=== PATIENT | female | born 1990 | race American Indian/Alaskan Native ===

== ENCOUNTER 2017-01-31 16:37 | Emergency (ER) | payer BC ==
[2017-01-31 18:42] LABS: Basophils % (Auto) 0.4 % (0.0-1.8); Eosinophils % (Auto) 2.6 % (0.0-4.3); Hematocrit 38.9 % (30.3-42.9); Hemoglobin 12.4 gm/dl (10.1-14.3); Mean Corpuscular HGB Conc 32 % (30-34); Mean Corpuscular Hemoglobin 28 pg (28-32); Mean Corpuscular Volume 87 fl (79-97); Platelet Count 231 K/mm3 (140-440); Red Blood Count 4.47 M/mm3 (3.65-5.03); Red Cell Distribution Width 14.7 % (13.2-15.2)
[2017-01-31 19:05] LABS: Alanine Aminotransferase 9 units/L (7-56); Albumin/Globulin Ratio 1.3 %; Alkaline Phosphatase 48 units/L (35-129); Anion Gap 15 mmol/L; BUN/Creatinine Ratio 16.25; Blood Urea Nitrogen 13 mg/dL (7-17); Calcium 8.6 mg/dL (8.4-10.2); Carbon Dioxide 25 mmol/L (22-30); Chloride 102.3 mmol/L (98-107); Glucose 162 mg/dL (65-100); Lipase 21 units/L (13-60); Sodium 138 mmol/L (137-145); Total Protein 7.1 g/dL (6.3-8.2)
[2017-01-31 22:45] VITALS: BP 120/65
--- NOTE | 2017-01-31 23:56 | Emergency Department Report ---
ED Abdominal Pain HPI - General Chief Complaint: Abdominal Pain Stated Complaint: ABD PAIN Time Seen by Provider: 01/31/17 23:46 Source: patient Mode of arrival: Ambulatory Limitations: No Limitations - History of Present Illness Initial Comments: 26-year-old female coming in with abdominal pain cramping in nature's started yesterday associated with nausea vomiting and watery diarrhea no blood or mucus. Denied any fever. Patient is on depo shot. No urinary symptoms. MD Complaint: abdominal pain -: days(s) (2) Location: diffuse Severity scale (0 -10): 4 Quality: cramping Associated Symptoms: nausea, vomiting, diarrhea. denies: dysuria - Related Data Previous Rx's Medication Instructions Recorded Last Taken Type Doxylamine/Pyridoxine HCl 1 each PO BID #30 tablet. 07/14/15 Unknown Rx [Joan Garcia 10-10 mg Tablet] Ciprofloxacin HCl [Ciprofloxacin 500 mg PO Q12H #14 tab 02/01/17 Unknown Rx TAB] Ondansetron [Zofran Odt] 4 mg PO Q8HR PRN #14 tab.rapdis 02/01/17 Unknown Rx Allergies Allergy/AdvReac Type Severity Reaction Status Date / Time No Known Allergies Allergy Verified 07/13/15 23:25 ED Review of Systems ROS: Stated complaint: ABD PAIN Other details as noted in HPI Constitutional: denies: chills, fever Respiratory: denies: cough, shortness of breath Cardiovascular: denies: chest pain, palpitations Gastrointestinal: abdominal pain, nausea, vomiting, diarrhea Neurological: denies: headache, weakness ED Past Medical Hx - Past Medical History Hx Hypertension: No Hx Congestive Heart Failure: No Hx Diabetes: Yes Hx Headaches / Migraines: Yes Hx Asthma: No Hx COPD: No - Social History Smoking Status: Never Smoker Substance Use Type: None - Medications Home Medications: Home Medications Medication Instructions Recorded Confirmed Last Taken Type Doxylamine/Pyridoxine HCl 1 each PO BID #30 tablet. 07/14/15 Unknown Rx [Joan Garcia 10-10 mg Tablet] Ciprofloxacin HCl [Ciprofloxacin 500 mg PO Q12H #14 tab 02/01/17 Unknown Rx TAB] Ondansetron [Zofran Odt] 4 mg PO Q8HR PRN #14 tab.rapdis 02/01/17 Unknown Rx ED Physical Exam - General Limitations: No Limitations General appearance: alert, in no apparent distress - Neck Neck exam: Present: normal inspection - Respiratory Respiratory exam: Present: normal lung sounds bilaterally - Cardiovascular Cardiovascular Exam: Present: regular rate, normal rhythm, normal heart sounds - GI/Abdominal GI/Abdominal exam: Present: soft. Absent: tenderness, guarding, rebound, rigid , normal bowel sounds, diminished bowel sounds, mass, bruit, pulsatile mass, hernia - Neurological Exam Neurological exam: Present: alert, oriented X3, CN II-XII intact - Skin Skin exam: Present: warm, normal color ED Course Vital Signs 01/31/17 01/31/17 18:15 22:44 Temperature 98.7 F 97.6 F Pulse Rate 81 63 Respiratory 16 18 Rate Blood Pressure 119/75 120/65 O2 Sat by Pulse 100 100 Oximetry ED Medical Decision Making - Lab Data Result diagrams: 01/31/17 18:27 01/31/17 18:27 Critical care attestation.: If time is entered above; I have spent that time in minutes in the direct care of this critically ill patient, excluding procedure time. ED Disposition Clinical Impression: Abdominal pain, UTI (urinary tract infection) Disposition: DC-01 TO HOME OR SELFCARE Is pt being admited?: No Condition: Stable Instructions: Abdominal Pain (ED), Urinary Tract Infection in Women (ED) Prescriptions: Ciprofloxacin HCl [Ciprofloxacin TAB] 500 mg PO Q12H #14 tab Ondansetron [Zofran Odt] 4 mg PO Q8HR PRN #14 tab.rapdis PRN Reason: Nausea And Vomiting Referrals: PRIMARY CARE, [Primary Care Provider] - 3-5 Days
[2017-02-01 00:40] LABS: Bilirubin,Urine NEG (Negative); Blood,Urine NEG (Negative); Ketones,Urine NEG (Negative); Leukocyte Esterase,Urine MOD (Negative); Mucus,Urine 1+ /HPF; Nitrite,Urine NEG (Negative); Protein,Urine <15 mg/dL mg/dL (Negative); Urobilinogen,Urine < 2.0 mg/dL (<2.0)
== END 2017-02-01 01:55 | disposition home or self-care (01) ==
LOC: ED 16:37
DX: N39.0 Urinary tract infection, site not specified (principal); E11.9 Type 2 diabetes mellitus without complications
CPT/HCPCS: 36415; 80053; 81001; 81025; 83690; 85025

== ENCOUNTER 2018-09-04 19:30 | Emergency (ER) | payer BC ==
[2018-09-04 19:41] VITALS: BP 108/76
--- NOTE | 2018-09-04 20:02 | Emergency Department Report ---
Blank Doc - Documentation Documentation: 27 y/o female with HIGGINBOTHAM all day. Has not taking anything for pain.
--- NOTE | 2018-09-04 20:27 | Emergency Department Report ---
ED Headache HPI - General Chief Complaint: Headache Stated Complaint: HEADACHE Time Seen by Provider: 09/04/18 20:27 Source: patient Exam Limitations: no limitations - History of Present Illness Initial Comments: Miguel is a 27-year-old female who comes to the ER today complaining of her usual migraine headache. She states that she has been seen here before with given a referral but she never followed up because she did not have insurance. However at this time she does have insurance and she is asking for referral to a neurologist. Patient drove herself to the ER. She is describing some light sensitivity in her usual global headache that has been occurring off and on for days. She is in no acute distress and ambulatory with stable vital signs. Timing/Duration: 24 hours, episodic Quality: mild Head Injury Location: global Recent Head Trauma: no recent headache/trauma, frequent headaches Modifying Factors: worse with: cold therapy, exposure to light, immobilization, medication, movement, rest, other Associated Symptoms: nausea/vomiting Allergies/Adverse Reactions: Allergies No Known Allergies Allergy (Verified 07/13/15 23:25) Home Medications: Ambulatory Orders Butalb/Acetamin/Caff 50-325-40 [Fioricet] 1 tab PO Q6HR PRN #20 tab 09/04/18 Ondansetron [Zofran Odt] 4 mg PO Q8HR PRN #10 tab.rapdis 09/04/18 ED Review of Systems ROS: Stated complaint: HEADACHE Other details as noted in HPI Comment: All other systems reviewed and negative Constitutional: denies: chills Eyes: denies: as per HPI ENT: denies: ear pain Respiratory: denies: cough Cardiovascular: denies: palpitations Endocrine: denies: flushing Gastrointestinal: denies: vomiting Genitourinary: denies: urgency Musculoskeletal: denies: back pain Skin: denies: lesions Neurological: as per HPI, headache Psychiatric: denies: depression Hematological/Lymphatic: denies: easy bleeding ED Past Medical Hx - Past Medical History Previous Medical History?: Yes Hx Hypertension: No Hx Congestive Heart Failure: No Hx Diabetes: No Hx Headaches / Migraines: Yes Hx Asthma: No Hx COPD: No Additional medical history: Vaginal dleivery x 1 - Surgical History Past Surgical History?: No - Social History Smoking Status: Never Smoker Substance Use Type: None - Medications Home Medications: Home Medications Medication Instructions Recorded Confirmed Last Taken Type Butalb/Acetamin/Caff 50-325-40 1 tab PO Q6HR PRN #20 tab 09/04/18 Unknown Rx [Fioricet] Ondansetron [Zofran Odt] 4 mg PO Q8HR PRN #10 tab.rapdis 09/04/18 Unknown Rx ED Physical Exam - General Limitations: No Limitations General appearance: alert, in no apparent distress - Head Head exam: Present: atraumatic, normocephalic - Eye Eye exam: Present: normal appearance, PERRL, EOMI - ENT ENT exam: Present: normal exam, mucous membranes moist - Neck Neck exam: Present: normal inspection - Respiratory Respiratory exam: Present: normal lung sounds bilaterally - Cardiovascular Cardiovascular Exam: Present: regular rate - GI/Abdominal GI/Abdominal exam: Present: soft, normal bowel sounds - Rectal Rectal exam: Present: deferred - External exam: Present: normal external exam - Extremities Exam Extremities exam: Present: normal inspection, full ROM - Back Exam Back exam: Present: normal inspection, full ROM - Neurological Exam Neurological exam: Present: alert, oriented X3, CN II-XII intact, normal gait, reflexes normal - Psychiatric Psychiatric exam: Present: normal affect, normal mood - Skin Skin exam: Present: warm, dry, intact ED Course Vital Signs 09/04/18 19:40 Temperature 98.6 F Pulse Rate 78 Respiratory 18 Rate Blood Pressure 108/76 O2 Sat by Pulse 100 Oximetry ED Medical Decision Making - Medical Decision Making her usual migraine drove to ER no focal neuro def no fever non toxic ambulatory taking po Vital Signs 09/04/18 19:40 Temperature 98.6 F Pulse Rate 78 Respiratory 18 Rate Blood Pressure 108/76 O2 Sat by Pulse 100 Oximetry medicated with toradol and dc home w dc plan of care. Critical care attestation.: If time is entered above; I have spent that time in minutes in the direct care of this critically ill patient, excluding procedure time. ED Disposition Clinical Impression: Migraine Disposition: DC-01 TO HOME OR SELFCARE Is pt being admited?: No Does the pt Need Aspirin: No Condition: Stable Instructions: Migraine Headache (ED) Additional Instructions: HYDRATE WELL WITH WATER EAT YOGURT DAILY FOLLOW UP PCP IF PERSISTS ACTIVITY TOLERATED DIET TOLERATED MED ORDERED Referrals: BINTA GUZMAN MD [Referring] - 3-5 Days Time of Disposition: 20:31
[2018-09-04] MEDS ORDERED: ZOFRAN ODT PO ONE (20:28)
[2018-09-04] MEDS ORDERED: TORADOL IM ONE (20:28)
== END 2018-09-04 20:45 | disposition home or self-care (01) ==
LOC: ED 19:30
DX: G43.909 Migraine, unspecified, not intractable, without status migrainosus (principal)
CPT/HCPCS: 96372; 99282; J1885; Q0162

== ENCOUNTER 2018-12-03 06:39 | Emergency (ER) | payer BC, OTHER ==
[2018-12-03 07:35] LABS: Basophils % (Auto) 0.5 % (0.0-1.8); Eosinophils # (Auto) 0.1 K/mm3 (0.0-0.4); Hematocrit 37.2 % (30.3-42.9); Hemoglobin 12.1 gm/dl (10.1-14.3); Lymphocytes % (Auto) 33.6 % (13.4-35.0); Mean Corpuscular HGB Conc 33 % (30-34); Mean Corpuscular Volume 85 fl (79-97); Monocytes # (Auto) 0.8 K/mm3 (0.0-0.8); Monocytes % (Auto) 13.6 % (0.0-7.3); Platelet Count 282 K/mm3 (140-440); Red Blood Count 4.39 M/mm3 (3.65-5.03); Red Cell Distribution Width 16.3 % (13.2-15.2)
[2018-12-03 07:53] LABS: Bilirubin,Urine NEG (Negative); Color,Urine Yellow (Yellow)
[2018-12-03 07:54] LABS: Bacteria,Urine 1+ /HPF (Negative); Blood,Urine NEG (Negative); Mucus,Urine FEW /HPF; Protein,Urine <15 mg/dL mg/dL (Negative); Urobilinogen,Urine < 2.0 mg/dL (<2.0)
[2018-12-03 07:56] LABS: Alanine Aminotransferase 8 units/L (7-56); Albumin 3.8 g/dL (3.9-5); BUN/Creatinine Ratio 15; Blood Urea Nitrogen 12 mg/dL (7-17); Calcium 8.6 mg/dL (8.4-10.2); Hemolysis Index 1
--- NOTE | 2018-12-03 08:07 | Emergency Department Report ---
ED Abdominal Pain HPI - General Chief Complaint: Abdominal Pain Stated Complaint: ABD PAIN Time Seen by Provider: 12/03/18 08:04 Source: patient Mode of arrival: Ambulatory Limitations: No Limitations - History of Present Illness Initial Comments: 28-year-old -[place] female comes in reporting of abdominal pain that started this morning. She admits to nausea no vomiting or vaginal bleeding or vaginal discharge. Patient reports that she is approximately 4 weeks . Patient reports she went to a clinic for confirmation with urine. Patient is 3 para 1. Nothing makes it worse and nothing makes it better. Patient does admit to started her vitamins as she was prescribed. MD Complaint: abdominal pain -: This morning Location: suprapubic Radiation: none Migration to: no migration Severity scale (0 -10): 6 Quality: cramping Consistency: intermittent Improves With: nothing Worsens With: nothing Associated Symptoms: nausea. denies: vomiting, diarrhea, constipation - Related Data Previous Rx's Medication Instructions Recorded Last Taken Type Butalb/Acetamin/Caff 50-325-40 1 tab PO Q6HR PRN #20 tab 09/04/18 Unknown Rx [Fioricet] Ondansetron [Zofran Odt] 4 mg PO Q8HR PRN #10 tab.rapdis 09/04/18 Unknown Rx Acetaminophen [Acetaminophen TAB] 500 mg PO Q6H PRN #30 tablet 12/03/18 Unknown Rx Allergies Allergy/AdvReac Type Severity Reaction Status Date / Time No Known Allergies Allergy Verified 07/13/15 23:25 ED Review of Systems ROS: Stated complaint: ABD PAIN Other details as noted in HPI Comment: All other systems reviewed and negative Gastrointestinal: abdominal pain, nausea. denies: vomiting ED Past Medical Hx - Past Medical History Previous Medical History?: Yes Hx Hypertension: No Hx Congestive Heart Failure: No Hx Diabetes: No Hx Headaches / Migraines: Yes Hx Asthma: No Hx COPD: No Additional medical history: Vaginal dleivery x 1 - Surgical History Past Surgical History?: No - Social History Smoking Status: Former Smoker Substance Use Type: None - Medications Home Medications: Home Medications Medication Instructions Recorded Confirmed Last Taken Type Butalb/Acetamin/Caff 50-325-40 1 tab PO Q6HR PRN #20 tab 09/04/18 Unknown Rx [Fioricet] Ondansetron [Zofran Odt] 4 mg PO Q8HR PRN #10 tab.rapdis 09/04/18 Unknown Rx Acetaminophen [Acetaminophen TAB] 500 mg PO Q6H PRN #30 tablet 12/03/18 Unknown Rx ED Physical Exam - General Limitations: No Limitations General appearance: alert, in no apparent distress - Head Head exam: Present: atraumatic, normocephalic - Eye Eye exam: Present: normal appearance - ENT ENT exam: Present: mucous membranes moist - Neck Neck exam: Present: normal inspection - Respiratory Respiratory exam: Present: normal lung sounds bilaterally. Absent: respiratory distress - Cardiovascular Cardiovascular Exam: Present: regular rate, normal rhythm. Absent: systolic murmur, diastolic murmur, rubs, gallop - GI/Abdominal GI/Abdominal exam: Present: tenderness (left lower quadrant) - Back Exam Back exam: Present: normal inspection - Neurological Exam Neurological exam: Present: alert, oriented X3 - Psychiatric Psychiatric exam: Present: normal affect, normal mood - Skin Skin exam: Present: warm, dry, intact, normal color. Absent: rash ED Course Vital Signs 12/03/18 06:46 Temperature 98.3 F Pulse Rate 71 Respiratory 16 Rate Blood Pressure 99/65 O2 Sat by Pulse 100 Oximetry ED Medical Decision Making - Lab Data Result diagrams: 12/03/18 07:15 12/03/18 07:15 - Radiology Data Radiology results: report reviewed Patient: AVTAR MAI MR# : [id number] : 1990 Acct:[id number] Age/Sex: 28 / F ADM Date: 12/03/18 Loc: ED Attending Dr: Ordering Physician: CAMACHO VELAZQUEZ Date of Service: 12/03/18 Procedure(s): US OB transvaginal Accession Number(s): [id number] cc: CAMACHO VELAZQUEZ ULTRASOUND OB LESS THAN 14 WEEKS - TRANSABDOMINAL AND TRANSVAGINAL INDICATION: , abdominal pain. Serum beta-hCG 9995 units. COMPARISON: None similar during this gestation. FINDINGS: Transabdominal and transvaginal pelvic sonography performed in this patient with LMP unknown. A 8.6 x 5.8 x 7 cm anteverted uterus demonstrates a single cystic focus towards the fundal endometrium without evidence of a pole or heart rate at this time. Mean gestational sac diameter of 1.2 cm corresponds to 6 weeks and zero days. A 0.2 cm yolk sac may also be present. An elongated 0.9 x 0.3 cm subchorionic hemorrhage may also be noted as on endovaginal image 27. Cervix closed. Small pelvic free fluid. Unremarkable 3 x 1.2 x 2 cm right ovary. Left ovary enlarged to 6.6 x 7.3 x 8.6 cm secondary to a 5.9 x 6.9 x 7.3 cm intrinsic cyst as on endovaginal image 24. CONCLUSION: 1. Sonographic findings may represent an intrauterine gestational sac/early estimated at 6 weeks and zero days with EDC of 07/29/2019, though viability yet not confirmed at this time in this patient with LMP unknown. 2. Left ovarian cyst. Please also correlate clinically, with serial serum beta-hCG values and/or followup sonogram, as warranted. Thank you for the opportunity to participate in this patient's care. Transcribed By: RS Dictated By: ALAN PETER MD Electronically Authenticated By: ALAN PETER MD Signed Date/Time: 12/03/18 1023 DD/ 1015 TD/TT: 12/03/18 1023 - Medical Decision Making 28-year-old female comes in for abdominal pain. Patient reports that she is pr egnant but does not know her last menstrual period. On ultrasound not able to confirm a viable but is able to see a gestational sac. Radiology suspects that is too early and with an adequate last menstrual period is not able to define a viable at this time. Patient be recommended to follow up with serial hCGs in the 8 hours and a repeat ultrasound. Discussed the patient she needs to take vitamins. Patient can follow up with her [facility] provider. Critical care attestation.: If time is entered above; I have spent that time in minutes in the direct care of this critically ill patient, excluding procedure time. ED Disposition Clinical Impression: Pelvic cramping, at early stage Disposition: DC-01 TO HOME OR SELFCARE Is pt being admited?: No Does the pt Need Aspirin: No Condition: Stable Instructions: Abdominal Pain (ED) Additional Instructions: Please follow up at [facility] office in 48 hours or here in the emergency room to have serial hCG levels and possible ultrasound. Prescriptions: Acetaminophen [Acetaminophen TAB] 500 mg PO Q6H PRN #30 tablet PRN Reason: Pain , Severe (7-10) Referrals: PASCALE COMER MD [Primary Care Provider] - 3-5 Days [facility] [Provider Group] - 3-5 Days [facility] [Provider Group] - 3-5 Days [facility] [Provider Group] - 3-5 Days Forms: Work/School Release Form(ED)
--- NOTE | 2018-12-03 10:24 | Ultrasound Report ---
ULTRASOUND OB LESS THAN 14 WEEKS - TRANSABDOMINAL AND TRANSVAGINAL INDICATION: , abdominal pain. Serum beta-hCG 9995 units. COMPARISON: None similar during this gestation. FINDINGS: Transabdominal and transvaginal pelvic sonography performed in this patient with LMP unknown. A 8.6 x 5.8 x 7 cm anteverted uterus demonstrates a single cystic focus towards the fundal endometrium without evidence of a pole or heart rate at this time. Mean gestational sac diameter of 1.2 cm corresponds to 6 weeks and zero days. A 0.2 cm yolk sac may also be present. An elongated 0.9 x 0.3 cm subchorionic hemorrhage may also be noted as on endovaginal image 27. Cervix closed. Small pelvic free fluid. Unremarkable 3 x 1.2 x 2 cm right ovary. Left ovary enlarged to 6.6 x 7.3 x 8.6 cm secondary to a 5.9 x 6.9 x 7.3 cm intrinsic cyst as on endovaginal image 24. CONCLUSION: 1. Sonographic findings may represent an intrauterine gestational sac/early estimated at 6 weeks and zero days with EDC of 07/29/2019, though viability yet not confirmed at this time in this patient with LMP unknown. 2. Left ovarian cyst. Please also correlate clinically, with serial serum beta-hCG values and/or followup sonogram, as warranted. Thank you for the opportunity to participate in this patient's care.
[2018-12-03] MEDS ORDERED: TYLENOL PO ONE (10:52)
[2018-12-03 11:11] VITALS: BP 104/62
== END 2018-12-03 11:08 | disposition home or self-care (01) ==
LOC: ED 06:39
DX: O26.891 Other specified pregnancy related conditions, first trimester (principal); R10.2 Pelvic and perineal pain; R10.32 Left lower quadrant pain; O99.331 Smoking (tobacco) complicating pregnancy, first trimester; F17.200 Nicotine dependence, unspecified, uncomplicated; Z79.899 Other long term (current) drug therapy; Z3A.01 Less than 8 weeks gestation of pregnancy
CPT/HCPCS: 36415; 76801; 76817; 80053; 81001; 84702; 85025; 99284

== ENCOUNTER 2019-01-25 17:50 | Emergency (ER) | payer OTHER ==
--- NOTE | 2019-01-25 17:58 | Emergency Department Report ---
Blank Doc - Documentation Documentation: This is a 28-year-old female that presents with headaches. Stated has history of migrane headaches. Patient is 12 weeks . This initial assessment/diagnostic orders/clinical plan/treatment(s) is/are subject to change based on patient's health status, clinical progression and re- assessment by fellow clinical providers in the ED. Further treatment and workup at subsequent clinical providers discretion. Patient/guardians urged not to elope from the ED as their condition may be serious if not clinically assessed and managed. Initial orders include: 1- Patient sent to [facility] for further evaluation and treatment
[2019-01-25] MEDS ORDERED: TYLENOL PO ONE ×2 (19:20→20:17)
[2019-01-25] MEDS ORDERED: ZOFRAN ONE (19:49)
[2019-01-25] MEDS ORDERED: NACL 0.9% 1000 ML 1,000 ML ONE (19:49)
--- NOTE | 2019-01-25 20:15 | Emergency Department Report ---
<MACIE AKBAR - Last Filed: 01/25/19 22:53> ED Headache HPI - General Chief Complaint: Headache Stated Complaint: 12WKS /HEADACHE/VOMITING Time Seen by Provider: 01/25/19 17:56 - History of Present Illness Allergies/Adverse Reactions: Allergies No Known Allergies Allergy (Verified 07/13/15 23:25) Home Medications: Ambulatory Orders Butalb/Acetamin/Caff 50-325-40 [Fioricet] 1 tab PO Q6HR PRN #20 tab 09/04/18 Ondansetron [Zofran Odt] 4 mg PO Q8HR PRN #10 tab.rapdis 09/04/18 Acetaminophen [Acetaminophen TAB] 500 mg PO Q6H PRN #30 tablet 12/03/18 Doxylamine Succinate [Unisom] 25 mg PO BID 7 Days #14 tablet 01/25/19 Pyridoxine HCl (Vitamin B6) [Pyridoxine HCl] 25 mg PO BID 7 Days #14 tablet 01/25/19 ED Past Medical Hx - Medications Home Medications: Home Medications Medication Instructions Recorded Confirmed Last Taken Type Butalb/Acetamin/Caff 50-325-40 1 tab PO Q6HR PRN #20 tab 09/04/18 Unknown Rx [Fioricet] Ondansetron [Zofran Odt] 4 mg PO Q8HR PRN #10 tab.rapdis 09/04/18 Unknown Rx Acetaminophen [Acetaminophen TAB] 500 mg PO Q6H PRN #30 tablet 12/03/18 Unknown Rx Doxylamine Succinate [Unisom] 25 mg PO BID 7 Days #14 tablet 01/25/19 Unknown Rx Pyridoxine HCl (Vitamin B6) 25 mg PO BID 7 Days #14 tablet 01/25/19 Unknown Rx [Pyridoxine HCl] ED Disposition Clinical Impression: Hyperemesis gravidarum, Migraine Disposition: DC-01 TO HOME OR SELFCARE Condition: Stable Instructions: Migraine Headache (ED) Additional Instructions: Continue with medications as prescribed. Follow-up OB provider. Increase her fluid intake eventually as tolerated. Prescriptions: Pyridoxine HCl (Vitamin B6) [Pyridoxine HCl] 25 mg PO BID 7 Days #14 tablet Doxylamine Succinate [Unisom] 25 mg PO BID 7 Days #14 tablet Referrals: [facility] MD [Primary Care Provider] - 3-5 Days Your, OB Provider [Other] - 3-5 Days Forms: Work/School Release Form(ED) <RACHELE GRIFFIN - Last Filed: 01/26/19 02:30> ED Headache HPI - History of Present Illness Initial Comments: 28 yo F stated that her headache is severe, light hurts eyes and loud sounds are aggravating. This has been ongoing for 2 days. She She further stated that she has had headaches like this in the past. Previously, she was prescribed Fiorcet but was told to cease due to . She has tried to take Tylenol po but had no success due to vomiting. Timing/Duration: other (2 days) Quality: severe Head Injury Location: temporal (R side) Recent Head Trauma: chronic headaches ED Review of Systems ROS: Stated complaint: 12WKS /HEADACHE/VOMITING Other details as noted in HPI Constitutional: denies: chills, fever Eyes: denies: eye pain, eye discharge, vision change ENT: denies: ear pain, throat pain Respiratory: denies: cough, shortness of breath, wheezing Cardiovascular: denies: chest pain, palpitations Endocrine: no symptoms reported Gastrointestinal: denies: abdominal pain, nausea, diarrhea Genitourinary: denies: urgency, dysuria, discharge Musculoskeletal: denies: back pain, joint swelling, arthralgia Skin: denies: rash, lesions Neurological: denies: headache, weakness, paresthesias Psychiatric: denies: anxiety, depression Hematological/Lymphatic: denies: easy bleeding, easy bruising ED Past Medical Hx - Past Medical History Hx Hypertension: No Hx Congestive Heart Failure: No Hx Diabetes: No Hx Headaches / Migraines: Yes Hx Asthma: No Hx COPD: No Additional medical history: Vaginal dleivery x 1 - Surgical History Past Surgical History?: No - Social History Smoking Status: Never Smoker Substance Use Type: None ED Physical Exam - General Limitations: No Limitations General appearance: alert - Head Head exam: Present: atraumatic - Eye Eye exam: Present: normal appearance (pt experienced pain with light exam of eyes), PERRL, EOMI Pupils: Present: normal accommodation - ENT ENT exam: Present: normal exam - Neck Neck exam: Present: normal inspection, full ROM - Respiratory Respiratory exam: Present: normal lung sounds bilaterally - Cardiovascular Cardiovascular Exam: Present: regular rate, normal rhythm, normal heart sounds - GI/Abdominal GI/Abdominal exam: Present: soft, distended - Rectal Rectal exam: Present: deferred - Extremities Exam Extremities exam: Present: normal inspection, full ROM - Neurological Exam Neurological exam: Present: alert, altered, oriented X3, CN II-XII intact, normal gait - Expanded Neurological Exam Expanded Patient oriented to: Present: person, place, time Speech: Present: fluid speech Cranial nerves: EOM's Intact: Normal, Gag Reflex: Normal, Tongue Deviation: Normal, Nystagmus: Normal, Facial Sensation: Normal Cerebellar function: Finger to Nose: Abnormal Right Upper motor neuron: Pronator Drift: Abnormal Right Sensory exam: Upper Extremity Light Touch: Normal, Lower Extremity Light Touch: Normal Motor strength exam: RUE: 5, LUE: 5, RLE: 5, LLE: 5 Best Eye Response ([place]): (4) open spontaneously Best Motor Response ([place]): (6) obeys commands Best Verbal Response ([place]): (5) oriented Urvashi Total: 15 - Psychiatric Psychiatric exam: Present: normal affect ED Course Vital Signs 01/25/19 01/25/19 01/25/19 17:57 19:26 20:26 Temperature 98.4 F Pulse Rate 80 Respiratory 16 16 16 Rate Blood Pressure 116/72 Blood Pressure [Right] O2 Sat by Pulse 100 Oximetry 01/25/19 23:35 Temperature Pulse Rate 81 Respiratory 16 Rate Blood Pressure Blood Pressure 99/51 [Right] O2 Sat by Pulse 99 Oximetry - Reevaluation(s) Reevaluation #1: 01/25/19 23:07 Pt stated that her headache has resolved and she feels much better. ED Medical Decision Making - Medical Decision Making 28 yo F stated that her headache is severe, light hurts eyes and loud sounds are aggravating. This has been ongoing for 2 days. She She further stated that she has had headaches like this in the past. Previously, she was prescribed Fiorcet but was told to cease due to . She has tried to take Tylenol po but had no success due to vomiting. Pt was given 2 IV bags of NS along with 8mg of po Zofran ODT . 2 attempts were made to give Tylenol po but no success was gained. The patient was then given 50 mg of Benadryl and 10 mg of Reglan by IV . The patient stated that she had relief from her headache. Upon discharge she was given Unisom 25 mg BID x 7 days and Pyridoxine 25 mg BID x 7days; told to f/u with OBGYN. Critical care attestation.: If time is entered above; I have spent that time in minutes in the direct care of this critically ill patient, excluding procedure time. ED Disposition Is pt being admited?: No Does the pt Need Aspirin: No
[2019-01-25] MEDS ORDERED: NACL 0.9% 1000 ML 1,000 ML IV ONE ×2 (20:16→20:56)
[2019-01-25] MEDS ORDERED: ZOFRAN IM ONE (20:20)
[2019-01-25] MEDS: ZOFRAN IV ONE ×2 (21:07→21:20)
[2019-01-25] MEDS ORDERED: BENADRYL IV ONE (21:17)
[2019-01-25] MEDS ORDERED: REGLAN IV ONE (21:18)
[2019-01-25 23:36] VITALS: BP 99/51
== END 2019-01-25 23:35 | disposition home or self-care (01) ==
LOC: ED 17:50
DX: O21.0 Mild hyperemesis gravidarum (principal); O99.351 Diseases of the nervous system complicating pregnancy, first trimester; G43.909 Migraine, unspecified, not intractable, without status migrainosus; Z3A.12 12 weeks gestation of pregnancy; Z79.899 Other long term (current) drug therapy
CPT/HCPCS: 96361; 96372; 96374; 96375; 99282; J1200; J2405; J2765; J7030

== ENCOUNTER 2019-01-26 22:45 | Observation (INO) | payer OTHER ==
[2019-01-26] MEDS ORDERED: ZOFRAN ODT PO ONE (23:59)
--- NOTE | 2019-01-27 00:29 | Emergency Department Report ---
<MACIE AKBAR - Last Filed: 01/27/19 00:48> ED N/V/D HPI - General Chief complaint: Nausea/Vomiting/Diarrhea Stated complaint: CANT KEEP ANYTHING DOWN 13 WEEKS Time Seen by Provider: 01/26/19 23:56 Source: patient Mode of arrival: Ambulatory Limitations: No Limitations - History of Present Illness Initial comments: 28-year-old -[place] female comes in for nausea and vomiting and headaches. Patient was seen last night for the same complaints and reports that the medications are not helping. Patient reports that her headache is throbbing. She reports she is approximately 13 weeks and due date is 07/30/2019. Patient denies any vaginal bleeding or vaginal discharge. Patient reports that she feels the baby's bawling not. Patient is followed by my OB and her next OB appointment will be today at 3:15. Patient is 2 para 1 with a last menstrual period of 10/25/2018. Patient last vomited about 9 PM prior to arrival. MD complaint: nausea, vomiting, other (headaches) Description of Vomiting: food contents, watery, bilious Associated Symptoms: headaches, nausea/vomiting. denies: chest pain, cough, diaphoresis, fever/chills - Related Data Previous Rx's Medication Instructions Recorded Last Taken Type Butalb/Acetamin/Caff 50-325-40 1 tab PO Q6HR PRN #20 tab 09/04/18 Unknown Rx [Fioricet] Ondansetron [Zofran Odt] 4 mg PO Q8HR PRN #10 tab.rapdis 09/04/18 Unknown Rx Acetaminophen [Acetaminophen TAB] 500 mg PO Q6H PRN #30 tablet 12/03/18 Unknown Rx Doxylamine Succinate [Unisom] 25 mg PO BID 7 Days #14 tablet 01/25/19 Unknown Rx Pyridoxine HCl (Vitamin B6) 25 mg PO BID 7 Days #14 tablet 01/25/19 Unknown Rx [Pyridoxine HCl] Allergies Allergy/AdvReac Type Severity Reaction Status Date / Time No Known Allergies Allergy Verified 07/13/15 23:25 ED Review of Systems Comment: All other systems reviewed and negative Gastrointestinal: nausea, vomiting Neurological: headache ED Past Medical Hx - Past Medical History Previous Medical History?: Yes Hx Hypertension: No Hx Congestive Heart Failure: No Hx Diabetes: No Hx Headaches / Migraines: Yes Hx Asthma: No Hx COPD: No Additional medical history: Vaginal dleivery x 1 - Surgical History Past Surgical History?: No - Social History Smoking Status: Never Smoker Substance Use Type: None - Medications Home Medications: Home Medications Medication Instructions Recorded Confirmed Last Taken Type Butalb/Acetamin/Caff 50-325-40 1 tab PO Q6HR PRN #20 tab 09/04/18 Unknown Rx [Fioricet] Ondansetron [Zofran Odt] 4 mg PO Q8HR PRN #10 tab.rapdis 09/04/18 Unknown Rx Acetaminophen [Acetaminophen TAB] 500 mg PO Q6H PRN #30 tablet 12/03/18 Unknown Rx Doxylamine Succinate [Unisom] 25 mg PO BID 7 Days #14 tablet 01/25/19 Unknown Rx Pyridoxine HCl (Vitamin B6) 25 mg PO BID 7 Days #14 tablet 01/25/19 Unknown Rx [Pyridoxine HCl] ED Physical Exam - General Limitations: No Limitations General appearance: alert, in no apparent distress - Head Head exam: Present: atraumatic, normocephalic - Eye Eye exam: Present: normal appearance - ENT ENT exam: Present: mucous membranes moist - Neck Neck exam: Present: normal inspection - Respiratory Respiratory exam: Present: normal lung sounds bilaterally. Absent: respiratory distress - Cardiovascular Cardiovascular Exam: Present: regular rate, normal rhythm. Absent: systolic murmur, diastolic murmur, rubs, gallop - GI/Abdominal GI/Abdominal exam: Present: soft, normal bowel sounds - Extremities Exam Extremities exam: Present: normal inspection - Back Exam Back exam: Present: normal inspection - Neurological Exam Neurological exam: Present: alert, oriented X3 - Psychiatric Psychiatric exam: Present: normal affect, normal mood - Skin Skin exam: Present: warm, dry, intact, normal color. Absent: rash ED Medical Decision Making - Medical Decision Making 28-year-old -E[place]ian female comes in for nausea and vomiting and headaches. Patient was seen last night for the same complaints and reports that the medications are not helping. Patient reports that her headache is throbbing. She reports she is approximately 13 weeks and due date is 07/30/2019. Patient denies any vaginal bleeding or vaginal discharge. Patient reports that she feels the baby's bawling not. Patient is followed by my OB and her next OB appointment will be today at 3:15. Patient is 2 para 1 with a last menstrual period of 10/25/2018. Patient last vomited about 9 PM prior to arrival. Spelled to Dr. Fer braden regarding patient's condition. Decision to consult [employer] Dr. Benjamin has been made. Spoke to Dr. Benjamin she requests admit orders and a right upper quadrant ultrasound. Hyperemesis gravidarum orders have been place patient be going to mother baby. ED Disposition Condition: Stable <LAY COHEN III - Last Filed: 01/27/19 01:57> ED Review of Systems ROS: Stated complaint: CANT KEEP ANYTHING DOWN 13 WEEKS Other details as noted in HPI ED Course Vital Signs 01/26/19 01/26/19 22:50 23:17 Temperature 98.8 F 98.8 F Pulse Rate 80 76 Respiratory 14 16 Rate Blood Pressure 113/73 113/73 O2 Sat by Pulse 100 100 Oximetry - Reevaluation(s) Reevaluation #1: I discussed plan of care with patient. I examined the patient. Patient agrees with plan of care. Patient will be admitted to Dr. Benjamin's service. 01/27/19 01:56 ED Medical Decision Making - Lab Data Result diagrams: 01/27/19 01:14 01/27/19 01:14 Critical care attestation.: If time is entered above; I have spent that time in minutes in the direct care of this critically ill patient, excluding procedure time.
[2019-01-27] MEDS ORDERED: ZOFRAN IV PRN (00:51)
[2019-01-27] MEDS ORDERED: NACL 0.9% 1000 ML 1,000 ML IV ONE (00:51)
[2019-01-27] MEDS ORDERED: D5LR 1,000 ML IV SCH (01:00)
[2019-01-27] MEDS ORDERED: PHENERGAN PR SCH (01:00)
[2019-01-27 01:46] LABS: Basophils % (Auto) 0.3 % (0.0-1.8); Eosinophils # (Auto) 0.1 K/mm3 (0.0-0.4); Eosinophils % (Auto) 1.4 % (0.0-4.3); Hematocrit 34.2 % (30.3-42.9); Hemoglobin 11.4 gm/dl (10.1-14.3); Lymphocytes # (Auto) 1.8 K/mm3 (1.2-5.4); Lymphocytes % (Auto) 26.1 % (13.4-35.0); Mean Corpuscular HGB Conc 33 % (30-34); Mean Corpuscular Volume 85 fl (79-97); Monocytes # (Auto) 0.7 K/mm3 (0.0-0.8); Monocytes % (Auto) 10.3 % (0.0-7.3); Platelet Count 246 K/mm3 (140-440); Red Blood Count 4.03 M/mm3 (3.65-5.03); Red Cell Distribution Width 15.8 % (13.2-15.2)
[2019-01-27 01:52] LABS: BUN/Creatinine Ratio 8; Blood Urea Nitrogen 5 mg/dL (7-17); Calcium 8.9 mg/dL (8.4-10.2); Hemolysis Index 1
--- NOTE | 2019-01-27 02:22 | Ultrasound Report ---
ULTRASOUND ABDOMEN, LIMITED (RIGHT UPPER QUADRANT) INDICATION: Hyperemesis gravidarum. Right upper quadrant pain with nausea and vomiting. COMPARISON: None available. FINDINGS: PANCREAS: No significant abnormality. LIVER: No significant abnormality. GALLBLADDER: No significant abnormality. BILE DUCTS: No significant abnormality. Common bile duct measures 1.6 mm. FREE FLUID: None. ADDITIONAL FINDINGS: Images of the right kidney are normal. IMPRESSION: No significant sonographic abnormality of the right upper quadrant. Signer Name: Yung Angela MD Signed: 01/27/2019 2:17 AM Workstation Name: [id number]
[2019-01-27] MEDS ORDERED: NACL 0.9% 1000 ML 1,000 ML ONE (02:26)
[2019-01-27 02:28] LABS: Hepatitis B Surface Antigen Non-Reactive (Negative); Hepatitis C Virus Antibody Non-Reactive (NonReactive)
[2019-01-27] MEDS ORDERED: BENADRYL IV ONE (02:28)
[2019-01-27] MEDS ORDERED: REGLAN IV ONE (02:28)
[2019-01-27] MEDS ORDERED: REGLAN ONE (02:31)
[2019-01-27] MEDS ORDERED: BENADRYL ONE (02:31)
[2019-01-27 03:04] LABS: HCG,Quantitative 71708 mIU/mL (0-4)
--- NOTE | 2019-01-27 03:24 | History and Physical Report ---
History of Present Illness Date of examination: 01/27/19 Date of admission: 01/27/19 00:57 Chief complaint: HIGGINBOTHAM, nausea and vomiting History of present illness: This is a 28-year-old female with Headache, nause and vomiting unresponsive to PO promethazine and Zofran. She was evaluated in the ED 01/25/2019 and given Doxylamine and Pyridoxine.She did not have the prescriptions filled because she was told by the pharmacist that her insurance would not pay for the prescribed medications and an herbal supplement called "Energy" was the same as the Pyridoxine and diphenhydramine was the same as the doxylamine so she but these medications instead. She was told to stop take Fioricet when she was found to be . She's admitted now for management of nausea/vomiting and headache. She denies bleeding or abdominal pain EDC Confirmation: 08/02/2019 Gestational Age: 7 weeks Past History : 3 Term Births: 1 Premature Births: 0 Living Children: 1 Para: 1 Mult. Births: 0 Prev : 0 Prev. attempt? 0 Aborta: 1 Elect. Ab: 1 Spont. Ab: 0 Ectopics: 0 # 1 Delivery date: 02/08/2010 Weeks Gestation: 41 Delivery type: Sex: Female weight: 7'3 # 2 Delivery date: 07/09/2015 Weeks Gestation: 16 weeks mid trimester termination. Past Medical History: Migraines - no aura Past Surgical History: Reviewed history from 04/15/2016 and no changes required: mid trimester termination. [place]. post op infection Past Medical History Abnormal PAP: negative Social Hx: Patient is single Smoking History: Patient has never smoked. Infection History Hx of STD: none HIV Risk Eval: no Hepatitis B Risk Eval: low risk Personal hx. of genital herpes: no Partner hx. of genital herpes: no Rash, Viral, or Febrile illness since last LMP? no Varicella/Chicken Pox Status: Previous Disease Genetic History Congenital Heart Defect: Mom: no Dad: no Holly Disease: Mom: no Dad: no Thalassemia Mom: no Dad: no Neural Tube Defect Mom: no Dad: no Down's Syndrome Mom: no Dad: no Oscar-Sachs Mom: no Dad: no Sickle Cell Disease/Trait Mom: no Dad: no Hemophilia Mom: no Dad: no Muscular Dystrophy Mom: no Dad: no Cystic Fibrosis Mom: no Dad: no Dawson Chorea Mom: no Dad: no Mental Retardation Mom: no Dad: no Fragile X Mom: no Dad: no Other Genetic/Chromosomal Disorder Mom: no Dad: no Child w/other defect Mom: no Dad: no Enviromental Exposures Xray Exposure: no Medication, drug, or alcohol use since LMP: no Chemical/Other Exposure: no Exposure to Cat Liter: no Hx of Parvovirus (Fifth Disease): no Occupational Exposure to Children: none Current Allergies (reviewed today) No known allergies Past History - Obstetrical History Expected Date of Delivery: 08/02/19 Actual Gestation: 13 Week(s) 2 Day(s) Medications and Allergies Allergies Allergy/AdvReac Type Severity Reaction Status Date / Time No Known Allergies Allergy Verified 07/13/15 23:25 Home Medications Medication Instructions Recorded Confirmed Last Taken Type Butalb/Acetamin/Caff 50-325-40 1 tab PO Q6HR PRN #20 tab 09/04/18 Unknown Rx [Fioricet] Ondansetron [Zofran Odt] 4 mg PO Q8HR PRN #10 tab.rapdis 09/04/18 Unknown Rx Acetaminophen [Acetaminophen TAB] 500 mg PO Q6H PRN #30 tablet 12/03/18 Unknown Rx Doxylamine Succinate [Unisom] 25 mg PO BID 7 Days #14 tablet 01/25/19 Unknown Rx Pyridoxine HCl (Vitamin B6) 25 mg PO BID 7 Days #14 tablet 01/25/19 Unknown Rx [Pyridoxine HCl] Active Meds: Active Medications Acetaminophen/Butalbital/Caffeine (Fioricet) 1 tab PO Q6HR PRN PRN Reason: Headache Dextrose/Lactated Ringer's (D5lr) 1,000 mls @ 500 mls/hr IV DIRECT [place] Stop: 01/28/19 02:59 Dextrose/Lactated Ringer's (D5lr) 1,000 mls @ 150 mls/hr IV DIRECT [place] Ondansetron HCl (Zofran) 4 mg IV Q6H PRN PRN Reason: N/V unrelieved by Reglan Review of Systems All systems: negative Constitutional: chronic headaches Gastrointestinal: nausea, vomiting - Vital Signs Vital signs: Vital Signs Temp Pulse Resp BP Pulse Ox 98.8 F 80 14 113/73 100 01/26/19 22:50 08/21/19 22:50 01/26/19 22:50 01/26/19 22:50 01/26/19 22:50 Temp Pulse Resp BP Pulse Ox 99.1 F 77 17 108/64 100 01/27/19 02:10 01/27/19 02:10 01/27/19 02:10 01/27/19 02:10 01/27/19 02:10 Results Result Diagrams: 01/27/19 01:14 01/27/19 01:14 Abnormal lab results 01/27/19 01/27/19 01/27/19 Range/Units 01:14 01:14 01:14 RDW 15.8 H (13.2-15.2) % [place] % (Auto) 10.3 H (0.0-7.3) % Potassium 3.4 L (3.6-5.0) mmol/L BUN 5 L (7-17) mg/dL Creatinine 0.6 L (0.7-1.2) mg/dL HCG, Quant 16103 H (0-4) mIU/mL All other labs normal. Assessment and Plan - Patient Problems (1) 13 weeks gestation of Current Visit: Yes Status: Acute (2) Hyperemesis gravidarum Current Visit: No Status: Acute Plan to address problem: Will start hyperemesis pathway Obtain Abdominal US Davion (3) Migraine Current Visit: No Status: Acute (4) Vomiting Current Visit: No Status: Acute Qualifiers: Vomiting Intractability: intractable Nausea presence: with nausea
[2019-01-27] MEDS: D5LR 1,000 ML IV SCH ×3 (06:04→18:39)
[2019-01-27] MEDS: FIORICET PO PRN ×2 (06:07→12:22)
[2019-01-27 06:09] LABS: Bilirubin,Urine NEG (Negative); Blood,Urine NEG (Negative); Color,Urine Yellow (Yellow); Mucus,Urine 3+ /HPF; Protein,Urine <15 mg/dL mg/dL (Negative)
[2019-01-27] MEDS: REGLAN IV SCH ×3 (08:43→21:19)
[2019-01-27] MEDS: PEPCID IV SCH ×2 (09:20→21:19)
--- NOTE | 2019-01-27 09:22 | Progress Note ---
Assessment and Plan Patient resting in bed with eyes closed, arouses to touch. Patient reports "I feel a lot better". Reports HIGGINBOTHAM pain is now 3/10, "dull" and she denies any n/v, pt reports she can not recall the last time she vomited, but reports she has not had anything by mouth for hours. Patient denies any other complaints; no LOF, vaginal bleeding, cramps, abdominal pain, SOB, difficulty breathing, chest pain. Will continue to monitor, continue current POC. Subjective - Subjective Date of service: 01/27/19 Principal diagnosis: HIGGINBOTHAM, N&V Patient reports: appetite normal, voiding normally, pain well controlled, ambulating normally, no nauseated Objective - Vital Signs Latest vital signs: Vital Signs Temp Pulse Pulse Resp Resp BP BP 01/27/19 07:07 18 01/27/19 06:07 18 01/27/19 03:35 98.1 F 70 18 105/68 01/27/19 03:34 18 01/27/19 03:01 98.1 F 18 105/68 01/27/19 03:00 80 18 01/27/19 02:10 99.1 F 77 17 108/64 01/26/19 23:17 98.8 F 76 16 113/73 01/26/19 22:50 98.8 F 80 14 113/73 Pulse Ox 01/27/19 07:07 01/27/19 06:07 01/27/19 03:35 99 01/27/19 03:34 01/27/19 03:01 01/27/19 03:00 01/27/19 02:10 100 01/26/19 23:17 100 01/26/19 22:50 100 Intake and Output 01/26/19 01/27/19 01/27/19 23:59 07:59 15:59 Intake Total 20 Output Total 350 Balance -330 Intake: IV 20 Right Hand 20 Output: Urine 350 Void 350 Other: Total, Output Amount 350 Voiding Method Toilet # Voids Void 1 Weight 68.5 kg 68.5 kg Patient Weight 01/27/19 23:59 Weight 68.5 kg - Exam Cardiovascular: Present: Regular rate, Normal S1, Normal S2 Lungs: Present: Clear to auscultation, Normal air movement Abdomen: Present: normal appearance, soft, normal bowel sounds. Absent: tenderness Uterus: Present: normal Extremities: Present: normal - Labs Labs: Abnormal lab results 01/27/19 01/27/19 01/27/19 Range/Units 01:14 01:14 01:14 RDW 15.8 H (13.2-15.2) % [place] % (Auto) 10.3 H (0.0-7.3) % Potassium 3.4 L (3.6-5.0) mmol/L BUN 5 L (7-17) mg/dL Creatinine 0.6 L (0.7-1.2) mg/dL HCG, Quant 71352 H (0-4) mIU/mL Urine WBC (Auto) (0.0-6.0) /HPF 01/27/19 Range/Units 05:41 RDW (13.2-15.2) % [place] % (Auto) (0.0-7.3) % Potassium (3.6-5.0) mmol/L BUN (7-17) mg/dL Creatinine (0.7-1.2) mg/dL HCG, Quant (0-4) mIU/mL Urine WBC (Auto) 7.0 H (0.0-6.0) /HPF
[2019-01-27] MEDS ORDERED: PRENATAL VITAMIN PO SCH (10:00)
[2019-01-28] MEDS: REGLAN IV SCH (02:04)
--- NOTE | 2019-01-28 08:20 | Progress Note ---
Assessment and Plan Pt resting without complaints. Reports "feels better". Tolerating soft diet well. Discussed D/C this afternoon if continues to do well on PO meds. - Patient Problems (1) 13 weeks gestation of Current Visit: Yes Status: Acute (2) Hyperemesis gravidarum Current Visit: No Status: Acute Plan to address problem: Will transition from IV Zofran to PO. Anticipate D/C home once tolerating PO Zofran. (3) Migraine Current Visit: No Status: Resolved Subjective - Subjective Date of service: 01/28/19 Principal diagnosis: HIGGINBOTHAM, N&V Patient reports: other (pt reports feeling better), no new complaints Objective - Vital Signs Vital Signs: Vital Signs - 12hr 01/27/19 01/28/19 01/28/19 23:30 00:03 05:20 Temperature 98.6 F 98.4 F Pulse Rate 63 63 Respiratory 20 20 Rate Respiratory 18 Rate [Head] Blood Pressure 104/64 97/51 O2 Sat by Pulse 99 98 Oximetry - Exam Lungs: Normal air movement Abdomen: Present: normal appearance Uterine Tone Measurement Phase: Resting Extremities: normal - Labs Labs: Abnormal Labs 01/27/19 01/27/19 01/27/19 01:14 01:14 01:14 RDW 15.8 H [place] % (Auto) 10.3 H Potassium 3.4 L BUN 5 L Creatinine 0.6 L HCG, Quant 11793 H Urine WBC (Auto) 01/27/19 05:41 RDW [place] % (Auto) Potassium BUN Creatinine HCG, Quant Urine WBC (Auto) 7.0 H
[2019-01-28] MEDS ORDERED: ZOFRAN ODT PO PRN (08:30)
--- NOTE | 2019-01-28 12:45 | Discharge Summary ---
Providers - Providers Date of Admission: 01/27/19 00:57 Date of discharge: 01/28/19 (pt agreeable to d/c home) Attending physician: JAKUB ORELLANA 01/27/19 00:51 Consult to Dietitian/Nutrition [CONS] Routine Physician Instructions: Reason For Exam: Reason for Consult: hyper grav Reason for Consult: Diet education Primary care physician: PASCALE COMER Hospitalization Reason for admission: other (hyperemesis) Discharge diagnosis: other (IUP @ 13 weeks, hyperemesis) Pertinent studies: urine ketones neg Hospital course: uncomplicated rehydration Condition at discharge: Good Disposition: DC-01 TO HOME OR SELFCARE - Discharge Diagnoses (1) 13 weeks gestation of Status: Acute (2) Hyperemesis gravidarum Status: Acute Plan - Discharge Medications Prescriptions: Ondansetron [Zofran ODT TAB] 8 mg PO Q12HR #30 tab.rapdis - Provider Discharge Summary Activity: routine Diet: other ([place] diet) Instructions: routine Additional instructions: [] Smoking cessation referral if applicable(refer to patient education folder for contact #) [] Refer to [facility] Booklet Call your doctor immediately for: * Fever > 100.5 * Heavy vaginal bleeding ( >1 pad per hour) * Severe persistent headache * Shortness of breath * Reddened, hot, painful area to leg or breast * Drainage or odor from incision. * Keep incision clean and dry at all times and follow doctor's instructions regarding bathing/showering - Follow up plan Follow up: PASCALE COMER MD [Primary Care Provider] - 3-5 Days MARY MCKENNA CNM [Advanced Practice Nurse] - 7 Days (Please call [phone] for any questions or concerns. Keep your next scheduled appointment in the office.)
[2019-01-28] MEDS: FIORICET PO PRN (15:38)
[2019-01-28 16:30] VITALS: BP 117/77
== END 2019-01-28 17:10 | disposition home or self-care (01) ==
LOC: ED 22:45 → OB 01-27 00:57
PROVIDERS: ADMIT Obstetrics & Gynecology; ATTEND Obstetrics & Gynecology
DX: O21.0 Mild hyperemesis gravidarum (principal); O26.891 Other specified pregnancy related conditions, first trimester; R19.7 Diarrhea, unspecified; Z3A.13 13 weeks gestation of pregnancy
CPT/HCPCS: 36415; 76705; 80048; 80074; 81001; 82010; 83690; 84439; 84443; 84702; 85025; 96361; 96374; 96375; 96376; 99284; G0378; J1200; J2405; J2765; J7030; J7121; Q0162

== ENCOUNTER 2019-04-04 11:33 | Outpatient (CLI) | payer OTHER ==
[2019-04-04 11:53] VITALS: BP 109/65
== END 2019-04-04 12:56 | disposition home or self-care (01) ==
LOC: TRG 11:33
PROVIDERS: ATTEND Obstetrics & Gynecology
DX: O47.02 False labor before 37 completed weeks of gestation, second trimester (principal); Z3A.23 23 weeks gestation of pregnancy
CPT/HCPCS: 59025

== ENCOUNTER 2019-04-20 02:48 | Outpatient (CLI) | payer MEDICAID, OTHER ==
[2019-04-20 03:37] VITALS: BP 94/52
--- NOTE | 2019-04-20 03:50 | Ultrasound Report ---
ULTRASOUND OBSTETRIC LIMITED INDICATION / CLINICAL INFORMATION: s/p fall. TECHNIQUE: Transabdominal ultrasound imaging. COMPARISON: No pertinent prior imaging FINDINGS: HEART RATE (beats per minute): 145 bpm AMNIOTIC FLUID INDEX (cm) = amniotic fluid index not measured but subjectively appears within normal limits. PRESENTATION: Cephalic. ADDITIONAL FINDINGS: Placenta is located anteriorly with a grade of 2. No evidence of abruption. IMPRESSION: Viable IUP. No evidence of placental abruption. Signer Name: Glenna Rosa MD Signed: 04/20/2019 3:46 AM Workstation Name: [id number]
== END 2019-04-20 03:42 | disposition home or self-care (01) ==
LOC: TRG 02:48
PROVIDERS: ATTEND Obstetrics & Gynecology
DX: Z34.82 Encounter for supervision of other normal pregnancy, second trimester (principal); Z3A.25 25 weeks gestation of pregnancy
CPT/HCPCS: 76815

== ENCOUNTER 2019-04-21 17:42 | Outpatient (CLI) | payer MEDICAID, OTHER ==
[2019-04-21 18:20] VITALS: BP 134/62
[2019-04-21] MEDS ORDERED: LACTATED RINGERS 500 ML IV ONE (19:00)
[2019-04-21] MEDS ORDERED: hydrOXYzine HCL 100 MG/2 ML INJ IM ONE (19:30)
== END 2019-04-21 21:25 | disposition home or self-care (01) ==
LOC: TRG 17:42
PROVIDERS: ATTEND Obstetrics & Gynecology
DX: O9A.212 Injury, poisoning and certain other consequences of external causes complicating pregnancy, second trimester (principal); M54.9 Dorsalgia, unspecified; O47.02 False labor before 37 completed weeks of gestation, second trimester; Z3A.25 25 weeks gestation of pregnancy; W01.0XXA Fall on same level from slipping, tripping and stumbling without subsequent striking against object, initial encounter; Y93.89 Activity, other specified; Y92.89 Other specified places as the place of occurrence of the external cause; Y99.8 Other external cause status
CPT/HCPCS: 59025; 96372; J3410; J7120

== ENCOUNTER 2019-05-15 08:44 | Outpatient (CLI) | payer OTHER ==
[2019-05-15 09:10] VITALS: BP 121/79
[2019-05-15] MEDS ORDERED: LACTATED RINGERS 500 ML IV ONE (09:28)
--- NOTE | 2019-05-15 11:57 | Ultrasound Report ---
Limited OB Ultrasound HISTORY: DAVID. TECHNIQUE: Grayscale and color Doppler imaging performed. COMPARISON: Limited OB ultrasound from 04/20/2019 FINDINGS: There is a single intrauterine gestation which is cephalic in presentation. Heart rate is 1 51 bpm. DAVID is 10 in this case it is reported to be 28 weeks and 5 days gestational age. IMPRESSION: Normal DAVID. Signer Name: Estuardo Spivey MD Signed: 05/15/2019 11:53 AM Workstation Name: [id number]
== END 2019-05-15 12:25 | disposition home or self-care (01) ==
LOC: TRG 08:44
PROVIDERS: ATTEND Obstetrics & Gynecology
DX: O47.03 False labor before 37 completed weeks of gestation, third trimester (principal); Z3A.28 28 weeks gestation of pregnancy
CPT/HCPCS: 76815

== ENCOUNTER 2019-05-26 12:49 | Outpatient (CLI) | payer OTHER ==
[2019-05-26 13:19] VITALS: BP 112/57
[2019-05-26] MEDS ORDERED: LACTATED RINGERS 500 ML IV ONE (14:19)
[2019-05-26 14:25] LABS: Bilirubin,Urine NEG (Negative); Blood,Urine NEG (Negative); Color,Urine Yellow (Yellow); Mucus,Urine FEW /HPF; Protein,Urine <15 mg/dL mg/dL (Negative); Urobilinogen,Urine < 2.0 mg/dL (<2.0)
== END 2019-05-26 15:33 | disposition home or self-care (01) ==
LOC: TRG 12:49
PROVIDERS: ATTEND Obstetrics & Gynecology
DX: O47.03 False labor before 37 completed weeks of gestation, third trimester (principal); Z3A.30 30 weeks gestation of pregnancy
CPT/HCPCS: 59025; 81001

== ENCOUNTER 2019-07-28 01:40 | Outpatient (CLI) | payer MEDICAID, OTHER ==
[2019-07-28 01:50] VITALS: BP 119/73
== END 2019-07-28 02:42 | disposition home or self-care (01) ==
LOC: TRG 01:40
PROVIDERS: ATTEND Obstetrics & Gynecology
DX: O47.03 False labor before 37 completed weeks of gestation, third trimester (principal); Z3A.39 39 weeks gestation of pregnancy; R06.02 Shortness of breath
CPT/HCPCS: 59025

== ENCOUNTER 2019-07-28 20:00 | Inpatient (IN) | payer OTHER ==
[2019-07-28] MEDS ORDERED: TERBUTALINE 1 MG/1 ML INJ SUB-Q PRN (21:34)
[2019-07-28] MEDS ORDERED: fentaNYL 100 MCG/2 ML INJ IV PRN (21:34)
[2019-07-28] MEDS ORDERED: LIDOCAINE (2%) 20 MG/1 ML VIAL 20 ML MDV INFILTRATI ONE (21:34)
[2019-07-28] MEDS ORDERED: ePHEDrine SULFATE 50 MG/1 ML INJ IV PRN ×2 (21:34→23:52)
[2019-07-28] MEDS ORDERED: AMPICILLIN/NS 2 GM/100 ML 2 GM/100 ML BAG IV ONE (21:34)
[2019-07-28] MEDS ORDERED: MINERAL OIL 30 ML ORAL LIQD PO PRN (21:34)
[2019-07-28] MEDS ORDERED: TERBUTALINE 1 MG/1 ML INJ IVP PRN (21:34)
[2019-07-28] MEDS ORDERED: LACTATED RINGERS 1,000 ML ONE (21:39)
--- NOTE | 2019-07-28 21:43 | History and Physical Report ---
History of Present Illness Date of examination: 07/28/19 (Pt in active labor) Date of admission: 07/28/2019 Chief complaint: Contractions that are 2 minutes apart History of present illness: Contractions that have been ongoing since the evening of 07/27/2019. Pt was seen in the labor and delivery triage for r/o labor and was sent home. Today she presented to triage with c/o contractions. She was checked by the RN and was found to be 4/90/-2. She walked for about an hour and was then found to be 6/100/0. She is being admitted for active labor and term. Past History Past Surgical History: no surgical history Family/Genetic History: none Social history: no significant social history - Obstetrical History Expected Date of Delivery: 08/02/19 Actual Gestation: 39 Week(s) 2 Day(s) : 3 Para: 1 Hx # Term Pregnancies: 1 Number of Pregnancies: 1 Spontaneous Abortions: 0 Induced : 0 Number of Living Children: 1 Medications and Allergies Allergies Allergy/AdvReac Type Severity Reaction Status Date / Time acetaminophen AdvReac Severe Itching Verified 05/26/19 13:18 [From Tylenol-Codeine #3] codeine AdvReac Severe Itching Verified 05/26/19 13:18 [From Tylenol-Codeine #3] Home Medications Medication Instructions Recorded Confirmed Last Taken Type Butalb/Acetamin/Caff 50-325-40 1 tab PO Q6HR PRN #20 tab 09/04/18 Unknown Rx [Fioricet] Ondansetron [Zofran Odt] 4 mg PO Q8HR PRN #10 tab.rapdis 09/04/18 Unknown Rx Acetaminophen [Acetaminophen TAB] 500 mg PO Q6H PRN #30 tablet 12/03/18 Unknown Rx Doxylamine Succinate [Unisom] 25 mg PO BID 7 Days #14 tablet 01/25/19 Unknown Rx Pyridoxine HCl (Vitamin B6) 25 mg PO BID 7 Days #14 tablet 01/25/19 Unknown Rx [Pyridoxine HCl] Ondansetron [Zofran ODT TAB] 8 mg PO Q12HR #30 tab.rapdis 01/28/19 Unknown Rx Active Meds: Active Medications Ephedrine Sulfate (Ephedrine Sulfate) 10 mg IV Q2M PRN PRN Reason: Hypotension Fentanyl (Sublimaze) 100 mcg IV Q2H PRN PRN Reason: Labor Pain Oxytocin/Sodium Chloride (Pitocin/Ns 20 Unit/1000ml Drip) 20 units in 1,000 mls @ 125 mls/hr IV DIRECT [place] Oxytocin/Sodium Chloride (Pitocin/Ns 30 Unit/500ml) 30 units in 500 mls @ 4 mls/hr IV TITR [place]; Protocol Lactated Ringer's (Lactated Ringers) 1,000 mls @ 125 mls/hr IV DIRECT [place] Ampicillin Sodium (Ampicillin/Ns 2 Gm/100 Ml) 2 gm in 100 mls @ 100 mls/hr IV ONCE ONE; Protocol Stop: 07/28/19 22:33 Lidocaine (Xylocaine 2%) 20 ml INFILTRATI ONCE ONE Stop: 07/28/19 21:35 Mineral Oil (Mineral Oil) 30 ml PO QHS PRN PRN Reason: Constipation Terbutaline Sulfate (Brethine) 0.25 mg SUB-Q ONCE PRN PRN Reason: Hyperstimulation/Hypertonicity Terbutaline Sulfate (Brethine) 0.25 mg IVP ONCE PRN PRN Reason: Hyperstimulation/Hypertonicity Review of Systems All systems: negative - Vital Signs Vital signs: Vital Signs Temp Resp 97.8 F 18 07/28/19 20:15 07/28/19 20:15 Temp Pulse Resp BP Pulse Ox 97.8 F 78 18 121/78 100 07/28/19 20:15 07/28/19 20:21 07/28/19 20:15 07/28/19 20:16 07/28/19 20:21 - Physical Exam Breasts: Positive: deferred Cardiovascular: Regular rate, Normal S1, Normal S2 Lungs: Positive: Normal air movement Abdomen: Positive: normal appearance, soft, normal bowel sounds. Negative: distention, tenderness Vulva: both: normal Vagina: Positive: normal moisture. Negative: discharge Cervix: Negative: lesion, discharge Uterus: Positive: normal size, normal contour Adnexa: both: normal Anus/Rectum: Positive: normal perianal skin, heme negative. Negative: rectal mass, hemorrhoids Extremities: Deep Tendon Reflex Grade: Normal +2 - Obstetrical FHR: auscultation normal, category 1 Cervical Dilatation: 7 (Per L&D RN) Cervical Effacement Percentage: 100 station: 0 Uterine Contraction Pattern: Regular Uterine Tone Measurement Phase: Resting Uterine Contraction Intensity: Moderate Results Result Diagrams: 07/28/19 20:30 All other labs normal. GBS POSITIVE Assessment and Plan a: 28 y.o. @ 39wks in active labor, GBS positive. P: Admit to L&D. Antibiotics for GBS. Anticipate . - Patient Problems (1) GBS (group B streptococcus) infection Onset Date: ~07/28/19 Current Visit: Yes Status: Acute Plan to address problem: Ampicillin ordered to be given while in active labor. (2) Active labor at term Onset Date: ~07/28/19 Current Visit: Yes Status: Acute Plan to address problem: Anticipate (3) 39 weeks gestation of Onset Date: ~07/28/19 Current Visit: Yes Status: Acute Plan to address problem: Active term in labor. Anticipate .
[2019-07-28 21:55] LABS: Hematocrit 37.9 % (30.3-42.9); Hemoglobin 12.1 gm/dl (10.1-14.3); Mean Corpuscular HGB Conc 32 % (30-34); Mean Corpuscular Volume 81 fl (79-97); Platelet Count 246 K/mm3 (140-440); Red Blood Count 4.71 M/mm3 (3.65-5.03); Red Cell Distribution Width 16.6 % (13.2-15.2)
[2019-07-28] MEDS ORDERED: OXYTOCIN 20 UNIT/1000ML DRIP 20 UNITS/1,000 ML BAG IV SCH (22:00)
[2019-07-28] MEDS ORDERED: LACTATED RINGERS 1,000 ML IV SCH (22:00)
[2019-07-28] MEDS ORDERED: OXYTOCIN DRIP 30 UNITS/500 ML BAG IV SCH (22:00)
[2019-07-28] MEDS ORDERED: PROMETHAZINE 25 MG TAB PO PRN (22:44)
[2019-07-28] MEDS ORDERED: NALOXONE 0.4 MG/1 ML INJ IV PRN (22:44)
[2019-07-28] MEDS ORDERED: fentaNYL-BUPIV 2 MCG/ML-0.125% 200 MCG/100 ML BAG EPIDURAL SCH (23:45)
[2019-07-28] MEDS ORDERED: NALOXONE 2 MG/2 ML INJ IV PRN (23:52)
--- NOTE | 2019-07-28 23:52 | Anesthesia Consultation ---
Anesthesia Consult and Med Hx Date of service: 07/28/19 - Airway Anesthetic Teeth Evaluation: Good ROM Head & Neck: Adequate Mental/Hyoid Distance: Adequate Mallampati Class: Class II Intubation Access Assessment: Probably Good - Pulmonary Exam CTA: Yes - Cardiac Exam Cardiac Exam: RRR - Pre-Operative Health Status ASA Pre-Surgery Classification: ASA2 Proposed Anesthetic Plan: Epidural - Pulmonary Hx Smoking: No Hx Asthma: No Hx Respiratory Symptoms: No SOB: No COPD: No Home Oxygen Therapy: No Hx Pneumonia: No Hx Sleep Apnea: No - Cardiovascular System Hx Hypertension: No Hx Coronary Artery Disease: No Hx Heart Attack/AMI: No Hx Angina: No Hx Percutaneous Transluminal Coronary Angioplasty (PTCA): No Hx Cardia Arrhythmia: No Hx Pacemaker: No Hx Internal Defibrillator: No Hx Valvular Heart Disease: No Hx Heart Murmur: No Hx Peripheral Vascular Disease: No - Central Nervous System Hx Neuromuscular Disorder: No (hx of migraine ) Hx Seizures: No CVA: No Hx Back Pain: No Hx Psychiatric Problems: No - Gastrointestinal Hx Ulcer: No Hx Gastroesophageal Reflux Disease: No - Endocrine Hx Renal Disease: No Hx End Stage Renal Disease: No Hx Cirrhosis: No Hx Liver Disease: No Hx Insulin Dependent Diabetes: No Hx Non-Insulin Dependent Diabetes: No Hx Thyroid Disease: No Hx Hypothyroidism: No Hx Hyperthyroidism: No - Hematic Hx Anemia: No Hx Sickle Cell Disease: No - Other Systems Hx Alcohol Use: No Hx Substance Use: No Hx Cancer: No Hx Obesity: Yes
[2019-07-29] MEDS ORDERED: PREGABALIN 75 MG CAP ONE (00:07)
[2019-07-29] MEDS ORDERED: DEXMEDETOMIDINE 200 MCG/2 ML VIAL IV ONE (00:08)
--- NOTE | 2019-07-29 00:08 | Progress Note ---
Assessment and Plan Pt still feeling ctxs and pressure. Cervical exam 9/100/0. More blood show noted. Anesthesia to come and evaluate pt d/t pain with ctxs. Anticipate . - Patient Problems (1) GBS (group B streptococcus) infection Onset Date: ~07/28/19 Current Visit: Yes Status: Acute (2) Active labor at term Onset Date: ~07/28/19 Current Visit: Yes Status: Acute (3) 39 weeks gestation of Onset Date: ~07/28/19 Current Visit: Yes Status: Acute Subjective - Subjective Date of service: 07/29/19 (Pt feeling pressure and ctxs with epidural) Principal diagnosis: IUP @ 39.2 wks in active labor Interval history: Contractions that have been ongoing since the evening of 07/27/2019. Pt was seen in the labor and delivery triage for r/o labor and was sent home. Today she presented to triage with c/o contractions. She was checked by the RN and was found to be 4/90/-2. She walked for about an hour and was then found to be 6/100 /0. She is being admitted for active labor and term. Objective - Vital Signs Vital Signs: Vital Signs - 12hr 07/28/19 07/28/19 07/28/19 20:15 20:16 20:21 Temperature 97.8 F Pulse Rate 72 78 Respiratory 18 Rate Blood Pressure 121/78 O2 Sat by Pulse 99 100 Oximetry 07/28/19 07/28/19 07/28/19 22:35 22:53 23:00 Temperature Pulse Rate 86 88 Respiratory 18 Rate Blood Pressure O2 Sat by Pulse 100 95 Oximetry 07/28/19 07/28/19 07/28/19 23:04 23:05 23:09 Temperature Pulse Rate 84 89 50 L Respiratory Rate Blood Pressure O2 Sat by Pulse 91 100 88 Oximetry 07/28/19 07/28/19 07/28/19 23:10 23:15 23:18 Temperature Pulse Rate 91 H 75 79 Respiratory Rate Blood Pressure O2 Sat by Pulse 100 100 90 Oximetry 07/28/19 07/28/19 07/28/19 23:20 23:29 23:31 Temperature Pulse Rate 73 85 74 Respiratory Rate Blood Pressure 121/77 O2 Sat by Pulse 100 100 Oximetry 07/28/19 07/28/19 07/28/19 23:33 23:34 23:36 Temperature Pulse Rate 79 79 84 Respiratory Rate Blood Pressure 123/86 120/75 O2 Sat by Pulse 100 Oximetry 07/28/19 07/28/19 07/28/19 23:39 23:40 23:41 Temperature Pulse Rate 85 84 72 Respiratory Rate Blood Pressure 134/65 O2 Sat by Pulse 100 92 Oximetry 07/28/19 07/28/19 07/28/19 23:42 23:45 23:47 Temperature Pulse Rate 90 71 74 Respiratory Rate Blood Pressure 125/77 130/75 O2 Sat by Pulse 100 Oximetry 07/28/19 07/28/19 07/28/19 23:48 23:51 23:54 Temperature Pulse Rate 78 73 75 Respiratory Rate Blood Pressure 137/73 131/74 121/67 O2 Sat by Pulse Oximetry 07/28/19 07/29/19 07/29/19 23:58 00:00 00:03 Temperature Pulse Rate 89 89 92 H Respiratory Rate Blood Pressure 148/71 144/70 139/70 O2 Sat by Pulse Oximetry - Exam Breasts: deferred Abdomen: Present: normal appearance, soft. Absent: distention, tenderness Uterus: Present: normal FHR: category 1 Uterine Contraction Monitor Mode: External Cervical Dilatation: 9 Cervical Effacement Percentage: 100 station: 0 Uterine Contraction Pattern: Regular Uterine Tone Measurement Phase: Resting Uterine Contraction Intensity: Moderate Deep Tendon Reflex Grade: Normal +2 - Labs Labs: Abnormal Labs 07/28/19 20:30 MCH 26 L RDW 16.6 H Laboratory Results - last 24 hr 07/28/19 07/28/19 20:30 22:30 WBC 8.6 RBC 4.71 Hgb 12.1 Hct 37.9 MCV 81 MCH 26 L MCHC 32 RDW 16.6 H Plt Count 246 Syphilis IgG Antibody Non-reactive
[2019-07-29] MEDS: OXYTOCIN 20 UNIT/1000ML DRIP 20 UNITS/1,000 ML BAG IV SCH ×2 (00:37→01:29)
[2019-07-29] MEDS ORDERED: WITCH HAZEL/ GLYCERIN PAD TP PRN (00:53)
[2019-07-29] MEDS ORDERED: BENZOCAINE/MENTHOL 20/0.5% TOP SPRAY 56 GM TP PRN (00:53)
[2019-07-29] MEDS ORDERED: LANOLIN/ZINC/DIMETHICONE (LANSINOH) 7 GM TP PRN (00:53)
[2019-07-29] MEDS ORDERED: HYDROCORTISONE 25 MG RECTAL SUPP PR PRN (00:53)
[2019-07-29] MEDS ORDERED: PROMETHAZINE 25 MG TAB PO PRN (00:53)
[2019-07-29] MEDS ORDERED: ONDANSETRON 4 MG/2 ML INJ IV PRN (00:53)
[2019-07-29] MEDS ORDERED: diphenhydrAMINE 25 MG CAP PO PRN (00:53)
[2019-07-29] MEDS ORDERED: MAGNESIUM HYDROXIDE (MOM) ORAL LIQD UDC PO PRN (00:53)
--- NOTE | 2019-07-29 00:53 | Procedure Note ---
OB Delivery Note - Delivery Date of Delivery: 07/29/19 Beater Lead: CAREY COLE Estimated blood loss: 300cc - Vaginal Delivery presentation: vertex Delivery position: OA Intrapartum events: other(please specify) (GBS positive and treated X1 with less than 4 hours before delivery.) Delivery induction: none Delivery augmentation: rupture of membranes Delivery monitor: none Route of delivery: Delivery placenta: spontaneous Delivery cord: nuchal cord (X1 around right leg) Episiotomy: none Delivery laceration: none Anesthesia: epidural Delivery comments: of viable male over intact perineum. Infant to mothers chest for skin to skin. DC team at bedside to evaluate infant d/t GBS and treatment X1 less than 4 hours before delivery. Nuchal cord X1 around right leg. Cord blood collected, 3 vessel cord noted. Placenta delivered intact. Fundus firm with minimal bleeding noted. Vagina and perineum inspected and no lacerations noted. EBL 300ml. Apgars 8/9. Wt 3450g. Mother and left in stable condition in LDR room. Laps and instruments counted X 2 with RN and correct both times.
[2019-07-29] MEDS ORDERED: AMPICILLIN/NS 1 GM/50 ML 1 GM/50 ML BAG IV SCH (02:46)
--- NOTE | 2019-07-29 08:02 | Event Note ---
Date: 07/29/19 s/p <12hrs post delivery; VSSAF, lochia scant, fundus firm, VSSAF, H&H ordered for this afternoon. pt is bottle feeding. all questions addressed, cont pathway.
[2019-07-29] MEDS: IBUPROFEN 800 MG TAB PO SCH ×2 (08:34→19:05)
[2019-07-29 14:22] LABS: Hematocrit 32.8 % (30.3-42.9); Hemoglobin 10.5 gm/dl (10.1-14.3)
--- NOTE | 2019-07-29 16:28 | Post Anesthesia Evaluation ---
- Post Anesthesia Evaluation Patient Participated: Yes Airway Patent: Yes Stable Respiratory Function: Yes Nausea/Vomiting: No Temp > 96.8F: Yes Pain Manageable: Yes Adequeate Hydration: Yes Anesthesia Complications: No Block Receding Appropriately: Yes
[2019-07-30] MEDS ORDERED: TETANUS,DIPH,PERTUSS(ACELL) VACCINE 0.5 ML SYRINGE IM ONE (06:00)
[2019-07-30] MEDS: IBUPROFEN 800 MG TAB PO SCH ×3 (07:06→18:33)
--- NOTE | 2019-07-30 11:10 | Progress Note ---
Assessment and Plan - Patient Problems (1) Delivery normal Current Visit: Yes Status: Acute Plan to address problem: day #1. Patient without nausea vomiting. Patient tolerating diet well Patient without fever. is doing well. Will continue routine care. Patient's hematocrit is 32.8%. Patient is bottle and breast-feeding and is unsure about future control. Patient desires discharge tomorrow. Subjective - Subjective Date of service: 07/30/19 Principal diagnosis: IUP @ 39.2 wks in active labor Patient reports: appetite normal, voiding normally, pain well controlled : doing well Objective - Vital Signs Latest vital signs: Vital Signs Temp Pulse Resp BP BP Pulse Ox 07/30/19 07:35 98.1 F 66 20 103/51 96 07/30/19 01:13 97.5 F L 72 16 110/72 98 07/29/19 15:40 98.4 F 83 18 113/66 07/29/19 13:39 98.2 F 68 18 115/56 Intake and Output 07/29/19 07/30/19 07/30/19 22:59 06:59 14:59 Intake Total 920 480 120 Output Total 1000 Balance -80 480 120 Intake: Oral 440 120 Intake, Free Water 480 480 Output: Urine 1000 Void 1000 Other: Total, Intake Amount 120 120 Total, Output Amount 600 # Voids Void 1 2 1 - Exam Breasts: Present: deferred Cardiovascular: Present: Regular rate Lungs: Present: Normal air movement Abdomen: Present: normal appearance, soft Uterus: Present: firm, fundal height below umbilicus Extremities: Present: edema
--- NOTE | 2019-07-31 11:21 | Discharge Summary ---
Providers - Providers Date of Admission: 07/29/19 01:14 Date of discharge: 07/31/19 Attending physician: ROSLYN MAIER Primary care physician: ROSLYN MAIER Hospitalization Reason for admission: active labor Delivery: Episiotomy: none Laceration: none Other procedures: none complications: none Discharge diagnosis: IUP at term delivered baby: male Hospital course: See dictated H&P. Patient was admitted underwent a normal spontaneous vaginal delivery. Her course was benign. She was afebrile throughout her stay. Her day 1 hematocrit was 32.8%. Patient is breast and bottle feeding and undecided on future control. Condition at discharge: Good Disposition: DC-01 TO HOME OR SELFCARE - Discharge Diagnoses (1) Delivery normal Status: Acute Plan - Discharge Medications Prescriptions: Lidocain2.5%/Prilocai2.5% [Emla] 5 gm TP ONCE PRN #1 tube PRN Reason: Pain Lidocain2.5%/Prilocai2.5% [Emla] 5 gm TP ONCE #1 tube Ferrous Sulfate [Feosol 325 MG tab] 325 mg PO BID #60 tablet Ibuprofen [Motrin 800 MG tab] 800 mg PO Q8HR PRN #30 tablet PRN Reason: Pain Ibuprofen [Motrin 800 MG tab] 800 mg PO Q6H PRN #30 tablet PRN Reason: Pain - Provider Discharge Summary Activity: routine, no sex for 6 weeks Diet: routine Instructions: routine Additional instructions: [] Smoking cessation referral if applicable(refer to patient education folder for contact #) [] Refer to [facility] Call your doctor immediately for: * Fever > 100.5 * Heavy vaginal bleeding ( >1 pad per hour) * Severe persistent headache * Shortness of breath * Reddened, hot, painful area to leg or breast *Patient to call office to schedule her son circumcision. Patient to follow-up in office in 4 weeks for her visit. - Follow up plan Follow up: ROSLYN MAIER MD [Primary Care Provider] - 7 Days
[2019-07-31 14:46] VITALS: BP 125/85
== END 2019-07-31 13:59 | disposition home or self-care (01) | DRG 774 ==
LOC: TRG 20:00 → LD 07-29 00:05 → TRG 07-29 01:13 → LD 07-29 01:14 → OB 07-29 02:40
PROVIDERS: ADMIT Obstetrics & Gynecology; ATTEND Obstetrics & Gynecology
PROC: 10E0XZZ Delivery of Products of Conception, External Approach (ICD-10-PCS; principal; 2019-07-29)
PROC: 3E0R3BZ Introduction of Anesthetic Agent into Spinal Canal, Percutaneous Approach (ICD-10-PCS; 2019-07-29)
PROC: 00HU33Z Insertion of Infusion Device into Spinal Canal, Percutaneous Approach (ICD-10-PCS; 2019-07-29)
PROC: 3E0234Z Introduction of Serum, Toxoid and Vaccine into Muscle, Percutaneous Approach (ICD-10-PCS; 2019-07-30)
DX: O98.82 Other maternal infectious and parasitic diseases complicating childbirth (principal); B95.1 Streptococcus, group B, as the cause of diseases classified elsewhere; O99.214 Obesity complicating childbirth; E66.9 Obesity, unspecified; O69.81X0 Labor and delivery complicated by cord around neck, without compression, not applicable or unspecified; Z3A.39 39 weeks gestation of pregnancy; Z37.0 Single live birth; Z23 Encounter for immunization; Z88.6 Allergy status to analgesic agent; Z88.5 Allergy status to narcotic agent
CPT/HCPCS: 36415; 59025; 85014; 85018; 85027; 86592; 86850; 86900; 86901; 90715; G0378; J0290; J2590; J3010; J3490; J7120

== ENCOUNTER 2020-04-11 16:49 | Emergency (ER) | payer OTHER ==
[2020-04-11 16:55] VITALS: BP 125/75
--- NOTE | 2020-04-11 17:04 | Event Note ---
ED Screening Note ED Screening Note: 9 weeks states she goes to my [facility] began having vaginal bleeding 20 minutes [employer] lower abd cramping +n/v/d no fever no urinary symptoms PMHx none no allergies to meds LNMP: 02/04/2020 /P:2/A:0 This initial assessment/diagnostic orders/clinical plan/treatment(s) is/are subject to change based on patients health status, clinical progression and re- assessment by fellow clinical providers in the ED. Further treatment and workup at subsequent clinical providers discretion. Patient/guardian urged not to elope from the ED as their condition may be serious if not clinically assessed and managed. Initial orders include: labs, UA, US
[2020-04-11 17:34] LABS: Basophils % (Auto) 0.5 % (0.0-1.8); Eosinophils # (Auto) 0.1 K/mm3 (0.0-0.4); Hematocrit 38.1 % (30.3-42.9); Hemoglobin 12.5 gm/dl (10.1-14.3); Lymphocytes # (Auto) 1.8 K/mm3 (1.2-5.4); Lymphocytes % (Auto) 20.4 % (13.4-35.0); Mean Corpuscular HGB Conc 33 % (30-34); Mean Corpuscular Volume 86 fl (79-97); Monocytes # (Auto) 0.6 K/mm3 (0.0-0.8); Monocytes % (Auto) 6.9 % (0.0-7.3); Platelet Count 277 K/mm3 (140-440); Red Blood Count 4.45 M/mm3 (3.65-5.03); Red Cell Distribution Width 14.8 % (13.2-15.2)
[2020-04-11 17:54] LABS: Alanine Aminotransferase 9 units/L (7-56); Albumin 3.8 g/dL (3.9-5); BUN/Creatinine Ratio 10; Blood Urea Nitrogen 8 mg/dL (7-17); Calcium 8.8 mg/dL (8.4-10.2); Hemolysis Index 5
--- NOTE | 2020-04-11 19:11 | Ultrasound Report ---
ULTRASOUND OBSTETRIC INDICATION / CLINICAL INFORMATION: , abd pain, bleeding. TECHNIQUE: Transabdominal. COMPARISON: None available. FINDINGS: No intrauterine visualized. Thickened endometrial stripe measures 1.7 cm with fluid in cerv ical canal and probable proximal of conception seen within cervical canal ADNEXA: Right ovary within normal limits. Left ovary not visualized secondary to bowel gas FREE FLUID: None. ADDITIONAL FINDINGS: None. IMPRESSION: 1. Spontaneous with blood/hemorrhage and embryonic tissue seen in cervical canal. 2. No IUP. Signer Name: Herbie Farooq MD Signed: 04/11/2020 7:06 PM Workstation Name: [id number]
[2020-04-11] MEDS ORDERED: MORPHINE 4 MG/1 ML INJ IM ONE (19:15)
[2020-04-11] MEDS ORDERED: ONDANSETRON 4 MG ODT TAB PO ONE (19:15)
[2020-04-11] MEDS ORDERED: POTASSIUM CHLORIDE ER 20 MEQ TAB PO ONE (19:15)
--- NOTE | 2020-04-11 19:22 | Emergency Department Report ---
ED General Adult HPI - General Chief complaint: Vaginal Bleeding Stated complaint: VAGINAL BLEEDING Time Seen by Provider: 04/11/20 17:02 Source: patient Mode of arrival: Ambulatory Limitations: No Limitations - History of Present Illness Initial comments: 29-year-old female presenting with chief complaint of abdominal pain. She states that she is about 9 weeks and last night developed nausea vomiting and diarrhea along with some intermittent vaginal bleeding. She states that the vaginal bleeding worsened today prompting her to come in. She also reports pelvic cramping. She states that after she had the ultrasound, she went to the restroom and passed multiple blood clots along with the fetus. She states that she still has pelvic cramping and is still bleeding. Symptoms are moderate to severe, nonradiating, no alleviating or exacerbating factors. - Related Data Previous Rx's Medication Instructions Recorded Last Taken Type Ibuprofen [Motrin 800 MG tab] 800 mg PO Q8HR PRN #30 tablet 07/29/19 Unknown Rx Ferrous Sulfate [Feosol 325 MG tab] 325 mg PO BID #60 tablet 07/30/19 Unknown Rx Ibuprofen [Motrin 800 MG tab] 800 mg PO Q6H PRN #30 tablet 07/30/19 Unknown Rx Ondansetron [Zofran ODT TAB] 4 mg PO Q8HR PRN #12 tab.rapdis 04/11/20 Unknown Rx traMADoL [Ultram 50 MG tab] 50 mg PO Q4HR PRN #12 tablet 04/11/20 Unknown Rx Allergies Allergy/AdvReac Type Severity Reaction Status Date / Time acetaminophen AdvReac Severe Itching Verified 05/26/19 13:18 [From Tylenol-Codeine #3] codeine AdvReac Severe Itching Verified 05/26/19 13:18 [From Tylenol-Codeine #3] ED Review of Systems ROS: Stated complaint: VAGINAL BLEEDING Other details as noted in HPI Comment: All other systems reviewed and negative Gastrointestinal: as per HPI Genitourinary: as per HPI ED Past Medical Hx - Past Medical History Previous Medical History?: Yes Hx Hypertension: No Hx Heart Attack/AMI: No Hx Congestive Heart Failure: No Hx Diabetes: No Hx Deep Vein Thrombosis: No Hx Liver Disease: No Hx Renal Disease: No Hx Sickle Cell Disease: No Hx Headaches / Migraines: Yes Hx Seizures: No Hx Asthma: No Hx COPD: No Hx HIV: No Additional medical history: Vaginal dleivery x 1 - Surgical History Past Surgical History?: No Hx Pacemaker: No Hx Internal Defibrillator: No - Social History Smoking Status: Never Smoker - Medications Home Medications: Home Medications Medication Instructions Recorded Confirmed Last Taken Type Ibuprofen [Motrin 800 MG tab] 800 mg PO Q8HR PRN #30 tablet 07/29/19 Unknown Rx Ferrous Sulfate [Feosol 325 MG tab] 325 mg PO BID #60 tablet 07/30/19 Unknown Rx Ibuprofen [Motrin 800 MG tab] 800 mg PO Q6H PRN #30 tablet 07/30/19 Unknown Rx Ondansetron [Zofran ODT TAB] 4 mg PO Q8HR PRN #12 tab.rapdis 04/11/20 Unknown Rx traMADoL [Ultram 50 MG tab] 50 mg PO Q4HR PRN #12 tablet 04/11/20 Unknown Rx ED Physical Exam - General Limitations: No Limitations General appearance: alert, in no apparent distress - Head Head exam: Present: atraumatic, normocephalic - Eye Eye exam: Present: normal appearance - ENT ENT exam: Present: mucous membranes moist - Neck Neck exam: Present: normal inspection - Respiratory Respiratory exam: Present: normal lung sounds bilaterally. Absent: respiratory distress - Cardiovascular Cardiovascular Exam: Present: regular rate, normal rhythm. Absent: systolic murmur, diastolic murmur, rubs, gallop - GI/Abdominal GI/Abdominal exam: Present: soft, tenderness (Diffuse lower abdominal), normal bowel sounds. Absent: distended, guarding, rebound - External exam: Present: other (Chaperoned by female RN, there is blood in the vaginal vault but there are no large clots and no heavy active bleeding) - Extremities Exam Extremities exam: Present: normal inspection - Back Exam Back exam: Present: normal inspection - Neurological Exam Neurological exam: Present: alert, oriented X3 - Psychiatric Psychiatric exam: Present: normal affect, normal mood - Skin Skin exam: Present: warm, dry, intact, normal color. Absent: rash ED Course Vital Signs 04/11/20 16:54 Temperature 98.4 F Pulse Rate 83 Respiratory 16 Rate Blood Pressure 125/75 [Right] O2 Sat by Pulse 100 Oximetry ED Medical Decision Making - Lab Data Result diagrams: 04/11/20 17:24 04/11/20 17:24 - Radiology Data Radiology results: report reviewed Spontaneous in progress - Medical Decision Making 29-year-old female presenting with nausea and diarrhea and now vaginal bleeding and cramping. She showed me a picture that confirms that she did have a spontaneous while in the waiting room after ultrasound. She does states she is still bleeding. She has lower abdominal tenderness on exam. Differential diagnosis includes complete miscarriage, incomplete miscarriage, gastroenteritis. Recommend pelvic exam and patient agrees to proceed. There is some blood in the vaginal vault but no significant hemorrhage, no large clots. Discussed supportive care and outpatient [facility] follow-up. - Differential Diagnosis Gastroenteritis, incomplete miscarriage, spontaneous miscarriage Critical care attestation.: If time is entered above; I have spent that time in minutes in the direct care of this critically ill patient, excluding procedure time. ED Disposition Clinical Impression: Nausea vomiting and diarrhea, Spontaneous miscarriage Disposition: TO HOME OR SELFCARE Is pt being admited?: No Condition: Stable Instructions: Managing Loss, Nausea and Vomiting, Adult, Miscarriage, [id number] Prescriptions: traMADoL [Ultram 50 MG tab] 50 mg PO Q4HR PRN #12 tablet PRN Reason: Pain Ondansetron [Zofran ODT TAB] 4 mg PO Q8HR PRN #12 tab.rapdis PRN Reason: Vomiting Referrals: RICKEY GUNDERSON MD [Primary Care Provider] - 3-5 Days ROSLYN MAIER MD [Staff Physician] - 3-5 Days Time of Disposition: 19:51
== END 2020-04-11 20:34 | disposition home or self-care (01) ==
LOC: ED 16:49
DX: O03.9 Complete or unspecified spontaneous abortion without complication (principal); O21.8 Other vomiting complicating pregnancy; O26.891 Other specified pregnancy related conditions, first trimester; R19.7 Diarrhea, unspecified; G43.909 Migraine, unspecified, not intractable, without status migrainosus; Z3A.09 9 weeks gestation of pregnancy; Z79.1 Long term (current) use of non-steroidal anti-inflammatories (NSAID); Z79.899 Other long term (current) drug therapy; Z88.8 Allergy status to other drugs, medicaments and biological substances
CPT/HCPCS: 36415; 76801; 80053; 84702; 85025; 86900; 86901; 96372; 99284; J2270; Q0162

== ENCOUNTER 2020-12-31 21:59 | Emergency (ER) | payer OTHER | END 2021-01-01 08:00 | LOC: ED 21:59 | DX: M54.2 Cervicalgia (principal); Z53.21 Procedure and treatment not carried out due to patient leaving prior to being seen by health care provider ==

== ENCOUNTER 2021-05-18 13:29 | Emergency (ER) | payer OTHER ==
[2021-05-18] MEDS ORDERED: IBUPROFEN 800 MG TAB PO STA (13:50)
[2021-05-18] MEDS ORDERED: ACETAMINOPHEN 500 MG TAB PO ONE (16:04)
--- NOTE | 2021-05-18 16:40 | XRay Report ---
CHEST 2 VIEWS INDICATION / CLINICAL INFORMATION: sob. COMPARISON: None available. FINDINGS: SUPPORT DEVICES: None. HEART / MEDIASTINUM: No significant abnormality. LUNGS / PLEURA: No significant pulmonary or pleural abnormality. No pneumothorax. ADDITIONAL FINDINGS: No significant additional findings. IMPRESSION: 1. No acute findings. Signer Name: Gael Crenshaw MD Signed: 05/18/2021 4:35 PM Workstation Name: [id number]
--- NOTE | 2021-05-18 17:55 | Emergency Department Report ---
ED Shortness of Breath HPI - General Chief Complaint: Dyspnea/Respdistress Stated Complaint: BODY AND CP Source: patient Mode of arrival: Ambulatory Limitations: No Limitations - History of Present Illness Initial Comments: 30 yo F here with cough, sob, fever. Her daughter tested positive for flu this week. Patient symptoms started on . - Related Data Previous Rx's Medication Instructions Recorded Last Taken Type Ibuprofen [Motrin 800 MG tab] 800 mg PO Q8HR PRN #30 tablet 07/29/19 Unknown Rx Ferrous Sulfate [Feosol 325 MG tab] 325 mg PO BID #60 tablet 07/30/19 Unknown Rx Ibuprofen [Motrin 800 MG tab] 800 mg PO Q6H PRN #30 tablet 07/30/19 Unknown Rx Ondansetron [Zofran ODT TAB] 4 mg PO Q8HR PRN #12 tab.rapdis 04/11/20 Unknown Rx traMADoL [Ultram 50 MG tab] 50 mg PO Q4HR PRN #12 tablet 04/11/20 Unknown Rx Oseltamivir [Tamiflu] 75 mg PO BID 5 Days #10 cap 05/18/21 Unknown Rx Allergies Allergy/AdvReac Type Severity Reaction Status Date / Time acetaminophen AdvReac Severe Itching Verified 05/26/19 13:18 [From Tylenol-Codeine #3] codeine AdvReac Severe Itching Verified 05/26/19 13:18 [From Tylenol-Codeine #3] ED Review of Systems ROS: Stated complaint: BODY AND CP Other details as noted in HPI Constitutional: chills, fever Eyes: denies: eye pain ENT: denies: throat pain Respiratory: cough, shortness of breath Cardiovascular: denies: chest pain Endocrine: no symptoms reported Gastrointestinal: denies: abdominal pain, nausea, vomiting Genitourinary: denies: urgency Musculoskeletal: as per HPI Skin: as per HPI Neurological: headache Psychiatric: denies: anxiety, depression Hematological/Lymphatic: denies: easy bleeding, easy bruising ED Past Medical Hx - Past Medical History Hx Hypertension: No Hx Heart Attack/AMI: No Hx Congestive Heart Failure: No Hx Diabetes: No Hx Deep Vein Thrombosis: No Hx Liver Disease: No Hx Renal Disease: No Hx Sickle Cell Disease: No Hx Headaches / Migraines: Yes Hx Seizures: No Hx Asthma: No Hx COPD: No Hx HIV: No Additional medical history: Vaginal dleivery x 1 - Surgical History Hx Pacemaker: No Hx Internal Defibrillator: No - Social History Smoking Status: Never Smoker - Medications Home Medications: Home Medications Medication Instructions Recorded Confirmed Last Taken Type Ibuprofen [Motrin 800 MG tab] 800 mg PO Q8HR PRN #30 tablet 07/29/19 Unknown Rx Ferrous Sulfate [Feosol 325 MG tab] 325 mg PO BID #60 tablet 07/30/19 Unknown Rx Ibuprofen [Motrin 800 MG tab] 800 mg PO Q6H PRN #30 tablet 07/30/19 Unknown Rx Ondansetron [Zofran ODT TAB] 4 mg PO Q8HR PRN #12 tab.rapdis 04/11/20 Unknown Rx traMADoL [Ultram 50 MG tab] 50 mg PO Q4HR PRN #12 tablet 04/11/20 Unknown Rx Oseltamivir [Tamiflu] 75 mg PO BID 5 Days #10 cap 05/18/21 Unknown Rx ED Physical Exam - General Limitations: No Limitations General appearance: alert, in no apparent distress - Head Head exam: Present: atraumatic, normocephalic - Eye Eye exam: Present: normal appearance - ENT ENT exam: Present: mucous membranes moist - Respiratory Respiratory exam: Present: normal lung sounds bilaterally. Absent: respiratory distress - Cardiovascular Cardiovascular Exam: Present: regular rate, normal rhythm. Absent: systolic murmur, diastolic murmur, rubs, gallop - GI/Abdominal GI/Abdominal exam: Present: soft, normal bowel sounds - Rectal Rectal exam: Present: deferred - Extremities Exam Extremities exam: Present: normal inspection - Back Exam Back exam: Present: normal inspection - Neurological Exam Neurological exam: Present: alert, oriented X3 - Psychiatric Psychiatric exam: Present: normal affect, normal mood - Skin Skin exam: Present: warm, dry, intact, normal color. Absent: rash ED Course Vital Signs 05/18/21 05/18/21 13:31 18:15 Temperature 101.7 F H Pulse Rate 102 H 93 H Respiratory 18 18 Rate Blood Pressure 115/73 Blood Pressure 104/69 [Left] O2 Sat by Pulse 98 100 Oximetry - Reevaluation(s) Reevaluation #1: Flu positive, improved after meds. ED Medical Decision Making - Medical Decision Making 30 yo F with exposure to flu here with complaint of fever, chills, cough, SOB Plan for x ray chest, flu testing, antipyretics. Critical care attestation.: If time is entered above; I have spent that time in minutes in the direct care of this critically ill patient, excluding procedure time. ED Disposition Clinical Impression: Influenza A Disposition: 01 HOME / SELF CARE / HOMELESS Is pt being admited?: No Does the pt Need Aspirin: No Condition: Stable Instructions: Influenza, Adult, [id number] Prescriptions: Oseltamivir [Tamiflu] 75 mg PO BID 5 Days #10 cap Referrals: PRIMARY CARE, [Primary Care Provider] - 3-5 Days Forms: Work/School Release Form(ED)
[2021-05-18 18:16] VITALS: BP 104/69
== END 2021-05-18 18:16 | disposition home or self-care (01) ==
LOC: ED 13:29
DX: J10.1 Influenza due to other identified influenza virus with other respiratory manifestations (principal); Z88.6 Allergy status to analgesic agent; Z88.5 Allergy status to narcotic agent
CPT/HCPCS: 71046; 87400; 99283